=== PATIENT | female | born 2000 | race Caucasian/White ===

== ENCOUNTER 2024-04-19 20:39 | Emergency (ER) | payer BC, SELFPAY ==
[2024-04-19 21:07] VITALS: BP 147/78; PULSE 86; RESP 16; TEMP 36.8; O2SAT 100
[2024-04-19] MEDS: TETANUS,DIPHTHERIA,AC PERTUSSIS ADULT (0.5 ML) BOOSTRIX IM (21:23)
--- NOTE | 2024-04-19 21:25 | ED.WOUNDLAC ---
HPI - Wound/Laceration General Chief Complaint: Wound/Laceration Stated Complaint: L thumb lac Time Seen by Provider: 04/19/24 21:17 Source: patient Mode of arrival: ambulatory Limitations: no limitations History of Present Illness HPI narrative: patient presents to the emergency department for laceration to the left thumb. She is not up-to-date on tetanus. Reports she accidentally cut her thumb with an apple cutter. Denies decreased range of motion or numbness. Related Data Allergies Allergy/AdvReac Type Severity Reaction Status Date / Time No Known Allergies Allergy Verified 04/19/24 21:12 Review of Systems Review of Systems: CONSTITUTIONAL: Denies fever SKIN: Reports laceration NEUROLOGIC: Denies numbness All systems reviewed & are unremarkable except as noted in HPI and below PMFSH Past Medical History Medical History (Updated 04/19/24 @ 21:28 by Roxana Ceballos PA-C) No active medical problems Social History Social History (Updated 04/19/24 @ 21:28 by Roxana Ceballos PA-C) Substance use: never Exam Narrative: GENERAL: Well-appearing, well-nourished, and in no acute distress. HEAD: Normocephalic, atraumatic. EYES: EOMI. EXTREMITIES: Normal range of motion. No edema. Left thumb with 1cm superficial laceration to the tip SKIN: Warm, dry, no rash. NEURO: No focal deficits. Alert and oriented x3. PSYCH: Normal mood and affect Course Course Emergency Course: patient educated on further wound care Vital Signs Vital signs: Vital Signs Temperature 98.2 F 04/19/24 21:07 Pulse Rate 86 04/19/24 21:07 Respiratory Rate 16 04/19/24 21:07 Blood Pressure 147/78 H 04/19/24 21:07 Pulse Oximetry 100 04/19/24 21:07 Oxygen Delivery Room Air 04/19/24 21:07 Temperature 98.2 F 04/19/24 21:07 Pulse Rate 86 04/19/24 21:07 Respiratory Rate 16 04/19/24 21:07 Blood Pressure 147/78 H 04/19/24 21:07 Pulse Oximetry 100 04/19/24 21:07 Oxygen Delivery Room Air 04/19/24 21:07 MDM - Wound/Laceration MDM Narrative Medical decision making narrative: patient presents to the emergency department after lacerating the tip of her finger with an apple cutter. The wound was fairly superficial. It was irrigated. It was covered with Steri-Strips and a bandage. She was updated on tetanus vaccination. She was instructed on further wound care. She is to follow up with primary provider. She was given warnings to return to the ER Differential Diagnosis Differential diagnosis: Likely laceration, abrasion and avulsion of skin Critical Care Time Critical Care Time Critical Care Time: No Discharge Plan Discharge Clinical Impression: Laceration Patient Disposition: Home, Self-Care Condition: Stable Instructions: Laceration (ED), Steristrips (ED) Additional Instructions: Return to the emergency department if you experience fever, redness or swelling of your wound, abnormal drainage from your wound, or any other symptoms that are concerning to you. You may take this bandage off tomorrow. You can let the water run over the wound in the shower. Keep the area clean with mild soap and water Follow-up with your primary care doctor for wound check Follow-up/Referrals: PHYSICIAN NOT ON STAFF,NONSTAFF [Primary Care Provider] -
== END 2024-04-19 21:45 | disposition home or self-care (01) ==
PROVIDERS: Emergency Provider Physician Assistant
DX: S61.012A Laceration without foreign body of left thumb without damage to nail, initial encounter (principal); W26.0XXA Contact with knife, initial encounter; Z23 Encounter for immunization
CPT/HCPCS: 90471; 90715; 99282

== ENCOUNTER 2024-11-24 12:59 | Emergency (ER) | payer SELFPAY ==
[2024-11-24 13:05] VITALS: BP 128/81; PULSE 96; RESP 18; TEMP 36.8; O2SAT 100
--- NOTE | 2024-11-24 13:32 | ED_ITS ---
HPI - General Adult General Chief complaint: Chest Pain Stated complaint: Chest/Left Arm Pain Source: patient Mode of arrival: ambulatory Limitations: no limitations History of Present Illness HPI narrative: Patient presents for evaluation of chest pain. She indicates she has had intermittent symptoms for the last two weeks. She experiences a dull pain in the left upper chest and a sharp stabbing pain in the left lower chest which occur at different times. Pain in the upper chest is rated 4/10 severity and in the lower chest 8/10. She indicates over the past 8 months she has had episodes where her heart rate accelerates as high as the 170's. This seems to occur when she is ambulating and she detects it with her Apple watch. During these episodes she can often tell that her heart rate is high. Last night she developed pain in left upper extremity with associated numbness extending into the digits of the left hand. No personal or family history of DVT or PE. She is on an estrogen base contraceptive. She does not smoke or vape. No recent surgeries. Denies any calf swelling. Related Data Home Medications ?Medication ?Instructions ?Recorded ?Confirmed ?Last Taken ?Type norethindrone 1 mg-ethinyl tablet 11/24/24 Unknown History estradiol 20 mcg (24)-iron 75 mg (4) tablet (Aurovela 24 Fe) Allergies Allergy/AdvReac Type Severity Reaction Status Date / Time No Known Allergies Allergy Verified 11/24/24 13:14 Review of Systems Review of Systems: CONSTITUTIONAL: Denies fever, chills, or sweats. EYES: Denies visual changes, redness, or discharge. ENT: Denies rhinorrhea, congestion, sore throat, or otalgia. CARDIOVASCULAR: Reports left sided chest pain with sensation of racing heart rate. Denies edema. RESPIRATORY: Denies cough or dyspnea. GASTROINTESTINAL: Denies abdominal pain, nausea, vomiting, or diarrhea. GENITOURINARY: Denies dysuria or hematuria. SKIN: Denies rash or itching. MUSCULOSKELETAL: Denies back pain, joint pain, or myalgia. NEUROLOGIC: Reports numbness in the left upper extremity. Denies headache, dizziness, or weakness. PSYCHIATRIC: Denies anxiety or depression. [facility] Past Medical History Medical History No active medical problems Surgical History Surgical History No pertinent past surgical history Family History Family History Mother Family history non-contributory Social History Social History Smoking status: Never smoker Substance use: never Living arrangements: with roommate(s) Occupation/Education: student Gender identity (if verbalized by the patient): Female Spiritual care concerns: No Exam Narrative: GENERAL: Well-appearing, well-nourished, and in no acute distress. HEAD: Normocephalic, atraumatic. EYES: PERRLA and EOMI. ENT: Nares clear, no rhinorrhea or epistaxis. Mucous membranes moist. Oropharynx without tonsillar hypertrophy exudate or other lesions. Bilateral TMs pearly ayon nonbulging NECK: Supple. No adenopathy or masses. No carotid bruits or JVD CHEST: Clear to auscultation. No respiratory distress. No wheezes rales or rhonchi HEART: Rate 130. regular rhythm. No murmur heard. Normal peripheral pulses. ABDOMEN: Soft, nontender, nondistended, normal active bowel sounds. EXTREMITIES: Normal range of motion. No edema. SKIN: Warm, dry, no rash. NEURO: No focal deficits. Alert and oriented x3. PSYCH: Normal mood and affect. Course Course Emergency Course: This is a 24-year-old female who presented for evaluation of chest pain and left upper extremity pain. I am initial evaluation she was tachycardic. She advised that her heart rate accelerates as high as 170 with ambulation. We walked a distance of approximately six feet together and her heart rate accelerated into the 150's. EKG was performed and showed sinus tachycardia with nonspecific T-wave changes. I recommended she be transferred to the hospital for further evaluation and treatment. [facility]. I contacted [facility] and spoke with physician assistant finance manager, Roxana Ceballos. She indicates that Dr Kiser will accept pt for transfer there. I recommended pt be transferred via EMS. She declined. She was concerned about cost and opted to be transferred via private vehicle despite medical recommendations. Level of Care: Express Care Visit Vital Signs Vital signs: Vital Signs Temperature 36.8 C 11/24/24 13:05 Pulse Rate 96 11/24/24 13:05 Respiratory Rate 18 11/24/24 13:05 Blood Pressure 128/81 11/24/24 13:05 Pulse Oximetry 100 11/24/24 13:05 Temperature 36.8 C 11/24/24 13:05 Pulse Rate 96 11/24/24 13:05 Respiratory Rate 18 11/24/24 13:05 Blood Pressure 128/81 11/24/24 13:05 Pulse Oximetry 100 11/24/24 13:05 Medical Decision Making Vital Signs Vital Signs: Vital Signs Temperature 36.8 C 11/24/24 13:05 Pulse Rate 96 11/24/24 13:05 Respiratory Rate 18 11/24/24 13:05 Blood Pressure 128/81 11/24/24 13:05 Pulse Oximetry 100 11/24/24 13:05 Temperature 36.8 C 11/24/24 13:05 Pulse Rate 96 11/24/24 13:05 Respiratory Rate 18 11/24/24 13:05 Blood Pressure 128/81 11/24/24 13:05 Pulse Oximetry 100 11/24/24 13:05 ECG Data EKG #1: ECG completion date: 11/24/24 ECG completion time: 13:26 Interpretation: sinus tachycardia, rate 131. Nonspecific ST and T-wave changes Discharge Plan Discharge Clinical Impression: Chest pain, Tachycardia Patient Disposition: Acute Care Hospital Condition: Stable Patient Language: Persian Prescriptions: No Action Aurovela 24 Fe 1 mg-20 mcg (24)/75 mg (4) tablet Follow-up/Referrals: PHYSICIAN,POINTER HELPER [Primary Care Provider] - Time of Disposition: 13:31
--- NOTE | 2024-11-24 13:49 | ECG_ITS ---
Test Date: 2024-11-24 13:26:14 Measurements Intervals [place] Rate: 131 P: 74 MO: 151 QRS: 84 QRSD: 75 T: 7 QT: 333 QTc: 493 Interpretive Statements SINUS TACHYCARDIA CONSIDER RIGHT VENTRICULAR CONDUCTION DELAY MINIMAL Q WAVES- INFERIOR LEADS NONSPECIFIC ST & T-WAVE ABNORMALITY- ANTEROLAT/INF LEADS BASELINE ARTIFACT- I, III, AVR, AVL, AVF ABNORMAL ECG No previous ECG available for comparison Electronically Signed On 11-24-2024 13:52:32 CDT by Jah Harris D.O.
== END 2024-11-24 14:02 | disposition short-term general hospital (02) ==
PROVIDERS: Emergency Provider Nurse Practitioner
DX: R07.9 Chest pain, unspecified (principal); R00.0 Tachycardia, unspecified
CPT/HCPCS: 93005; 93010; 99213; G0463

== ENCOUNTER 2024-11-24 14:27 | Emergency (ER) | payer BC, SELFPAY ==
--- NOTE | ~2024-11-24 | XR_ITS ---
XR chest 1V portable Ordering provider: Ralph Kiser MD History: 24 years Female with . CP, palpitations . Comparison: None. FINDINGS: MEDIASTINUM: The cardiac silhouette is not enlarged. LUNGS: No infiltrates, effusions or pneumothorax. OTHER: No free air under the diaphragm. IMPRESSION: No acute cardiopulmonary pathology. Reviewed, dictated and finalized at location A.
--- NOTE | 2024-11-24 14:29 | ECG_ITS ---
Test Date: 2024-11-24 14:37:26 Measurements Intervals [place] Rate: 103 P: 0 DC: 0 QRS: 81 QRSD: 76 T: 20 QT: 296 QTc: 388 Interpretive Statements SINUS TACHYCARDIA MINIMAL Q WAVES- INFERIOR LEADS NONSPECIFIC ST ABNORMALITY- ANTEROLAT/INF LEADS BORDERLINE ECG Compared to ECG 11/24/2024 13:26:14 HEART RATE HAS DECREASED Electronically Signed On 11-24-2024 14:43:30 CDT by Jah Harris D.O.
[2024-11-24 14:35] VITALS: BP 137/96; PULSE 142; RESP 26; TEMP 36.6; O2SAT 100
[2024-11-24 14:44] VITALS: PULSE 130
[2024-11-24 14:53] LABS: Basophils Percent Auto 0.4 % (0.2-1.2); Eosinophils Absolute Auto 0.1 K/mm3 (0-0.3); Eosinophils Percent Auto 1.5 % (0-4.4); Hematocrit 41.9 % (37.0-47.0); Immature Granulocyte Absolute 0.03 K/mm3 (0.00-0.031); Immature Granulocyte Percent A 0.3 % (0-0.5); Lymphocytes Absolute Auto 2.07 K/mm3 (0.9-3.2); Lymphocytes Percent Auto 23.1 % (18.3-44.2); Mean Corpuscular HGB Conc 33.4 g/dl (32-36); Mean Corpuscular Hemoglobin 31.5 pg (26-34); Mean Corpuscular Volume 94.4 fl (80-100); Mean Platelet Volume 9.9 fl (7.4-10.4); Monocytes Absolute Auto 0.7 K/mm3 (0.1-0.6); Monocytes Percent Auto 7.5 % (2.6-8.5); Neutrophils Percent Auto 67.2 % (45.5-73.1); Platelet Count Result 322 k/mm3 (150-375); Red Blood Count 4.44 M/mm3 (4.2-5.4); Red Cell Distribution Width 12.6 % (11.5-14.5)
[2024-11-24 15:07] LABS: Prothrombin Time 13.2 Seconds (11.1-14.7)
[2024-11-24 15:08] LABS: Partial Thromboplastin Time 22.1 Seconds (22.3-36.8)
[2024-11-24 15:26] LABS: Alanine Aminotransferase 20 U/L (6-35); Alkaline Phosphatase 57 U/L (38-126); Anion Gap 12 mmol/L (4-12); Aspartate Amino Transferase 24 U/L (14-36); Bilirubin,Total 0.8 mg/dL (0.2-1.3); Blood Urea Nitrogen 10 mg/dL (7-17); Calcium 9.9 mg/dL (8.4-10.2); Carbon Dioxide 21 mmol/L (22-30); Chloride 106 mmol/L (98-107); Estimated CRCL calculation 91 ml/min; Estimated Glomerular Filt Rate > 60; Glucose 99 mg/dL (65-110); Lipase 153 U/L (23-300); Potassium 3.8 mmol/L (3.4-5.0); Sodium 139 mmol/L (137-145)
[2024-11-24] MEDS: SODIUM CHLORIDE 0.9% IV 2,000 ML 999 ML IV CONT (15:28)
[2024-11-24] MEDS: diazePAM INJ (*CRX) 10 MG/2 ML SYRINGE 5 MG IV PUSH (15:29)
[2024-11-24 15:31] LABS: D Dimer 0.39 ug/mL (<0.48)
[2024-11-24 15:33] VITALS: BP 116/81; PULSE 103; RESP 18; O2SAT 99
[2024-11-24 15:37] LABS: Troponin I < 0.012 ng/mL (0.000-0.034)
--- NOTE | 2024-11-24 16:07 | ED_ITS ---
HPI - General Adult General Chief complaint: Chest Pain Stated complaint: CP, palpitations Time Seen by Provider: 11/24/24 14:34 History of Present Illness HPI narrative: This is a 24-year-old female presenting with chief complaint of chest pain and palpitations. She was sent from a urgent care for further workup due to tachycardia and chest pain. The patient says that for the last 2 weeks she has been having intermittent pain on the left side of her chest. It is sharp, comes for a few seconds at a time and happens numerous times throughout the day. Occurs worse at night when she is trying to go to bed. Patient is tachycardic in the 130s. Patient has been tracking her heart rate with a apple watch since 2018 and she is frequently tachycardic in the 120s or 30s. She denies any fevers chills productive cough, shortness of breath abdominal pain urinary symptoms lower extremity edema or risk factors for DVT/PE. She is on estrogen control. Related Data Home Medications ?Medication ?Instructions ?Recorded ?Confirmed ?Last Taken ?Type norethindrone 1 mg-ethinyl tablet 11/24/24 Unknown History estradiol 20 mcg (24)-iron 75 mg (4) tablet (Aurovela 24 Fe) Allergies Allergy/AdvReac Type Severity Reaction Status Date / Time No Known Allergies Allergy Verified 11/24/24 13:14 [facility] Past Medical History Medical History No active medical problems Surgical History Surgical History No pertinent past surgical history Family History Family History Mother Family history non-contributory Social History Social History Smoking status: Never smoker Substance use: never Living arrangements: with roommate(s) Occupation/Education: student Gender identity (if verbalized by the patient): Female Spiritual care concerns: No Exam 2 Narrative: APPEARANCE: No apparent distress. Head: atraumatic. EYES: EOMI, NOSE: Atraumatic NECK: Trachea midline RESPIRATORY: No increased rate of breathing clear to auscultation CARDIOVASCULAR: Tachycardic, no peripheral edema, calves are equal in diameter ABDOMINAL: Non-distended soft nontender MUSCULOSKELETAl: No obvious deformities NEURO: Alert. Moving 4/4 extremities SKIN:: Warm, dry. Normal color PSYCHIATRIC: Normal affect Course Vital Signs Vital signs: Vital Signs Temperature 97.8 F 11/24/24 14:35 Pulse Rate 142 H 11/24/24 14:35 Respiratory Rate 26 H 11/24/24 14:35 Blood Pressure 137/96 H 11/24/24 14:35 Pulse Oximetry 100 11/24/24 14:35 Oxygen Delivery Room Air 11/24/24 14:35 Temperature 97.8 F 11/24/24 14:35 Pulse Rate 103 H 11/24/24 15:33 Respiratory Rate 18 11/24/24 15:33 Blood Pressure 116/81 11/24/24 15:33 Pulse Oximetry 99 11/24/24 15:33 Oxygen Delivery Room Air 11/24/24 14:35 Medical Decision Making MDM Narrative Medical decision making narrative: -Course: 24-year-old female spent for intermittent chest pain for 2 weeks. Troponin, D-dimer and chest x-ray were unremarkable. Low risk per Wells criteria w/ a negative dimer. EKG showed sinus tachycardia without ischemic changes. Patient has been tachycardic for over 7 years and this is a chronic condition. Patient received 2 L of fluids. On re-evaluation she is resting comfortably in bed. She no longer has chest pain. Her heart rate at rest on the quality assurance monitor is in the 90s, however when you go to speak to her quickly elevates to the 130s. I discussed results with patient she is comfortable going home. I did recommend referral to a sap portal consultant and she says she has 1 at home that she would like to see. Patient will be discharged with return precautions. -DDX includes but is not limited to: POTS, anxiety, pleurisy, ACS, PE, pneumonia, PTX -Independent interpretation of studies: Labs and imaging reviewed Independent EKG interpretation: Rhythm [sinus], Rate [103], [place] -[normal], [place] -[normal], QRS [narrow], QTC [normal], T waves -[negative for concerning inversions], ST Segments - [Negative for concerning elevations] Final interpretations: Sinus tachycardia Wells' Criteria for Pulmonary Embolism from [employer] on 11/24/2024 All calculations should be rechecked by clinician prior to use RESULT SUMMARY: 1.5 points Low risk group: 1.3% chance of PE in an ED population. Another study assigned scores <=4 as ?PE Unlikely? and had a 3% incidence of PE. INPUTS: Clinical signs and symptoms of DVT ?> 0 = No PE is #1 diagnosis OR equally likely ?> 0 = No Heart rate > 100 ?> 1.5 = Yes Immobilization at least 3 days OR surgery in the previous 4 weeks ?> 0 = No Previous, objectively diagnosed PE or DVT ?> 0 = No Hemoptysis ?> 0 = No Malignancy w/ treatment within 6 months or palliative ?> 0 = No Vital Signs Vital Signs: Vital Signs Temperature 97.8 F 11/24/24 14:35 Pulse Rate 142 H 11/24/24 14:35 Respiratory Rate 26 H 11/24/24 14:35 Blood Pressure 137/96 H 11/24/24 14:35 Pulse Oximetry 100 11/24/24 14:35 Oxygen Delivery Room Air 11/24/24 14:35 Temperature 97.8 F 11/24/24 14:35 Pulse Rate 103 H 11/24/24 15:33 Respiratory Rate 18 11/24/24 15:33 Blood Pressure 116/81 11/24/24 15:33 Pulse Oximetry 99 11/24/24 15:33 Oxygen Delivery Room Air 11/24/24 14:35 Lab Data 11/24/24 14:41 11/24/24 15:08 Labs: Lab Results 11/24/24 11/24/24 Range/Units 14:41 15:08 WBC 9.0 (4.5-10.0) K/mm3 RBC 4.44 (4.2-5.4) M/mm3 Hgb 14.0 (12.0-15.0) g/dL Hct 41.9 (37.0-47.0) % MCV 94.4 (80-100) fl MCH 31.5 (26-34) pg MCHC 33.4 (32-36) g/dl RDW 12.6 (11.5-14.5) % Plt Count 322 (150-375) k/mm3 MPV 9.9 (7.4-10.4) fl Immature Gran % (Auto) 0.3 (0-0.5) % Neut % (Auto) 67.2 (45.5-73.1) % Lymph % (Auto) 23.1 (18.3-44.2) % [place] % (Auto) 7.5 (2.6-8.5) % Eos % (Auto) 1.5 (0-4.4) % Baso % (Auto) 0.4 (0.2-1.2) % Lymph # (Auto) 2.07 (0.9-3.2) K/mm3 [place] # (Auto) 0.7 H (0.1-0.6) K/mm3 Eos # (Auto) 0.1 (0-0.3) K/mm3 Baso # (Auto) 0.0 (0.0-0.1) K/mm3 Abs Immat Gran (auto) 0.03 (0.00-0.031) K/mm3 Absolute Neuts (auto) 6.0 (1.3-6.7) K/mm3 Absolute Nucleated RBC 0.000 (0.0-0.012) K/mm3 Nucleated RBC % 0.0 (0.0-0.2) % PT 13.2 (11.1-14.7) Seconds INR 1.0 APTT 22.1 L (22.3-36.8) Seconds D-Dimer 0.39 (<0.48) ug/mL Sodium 139 (137-145) mmol/L Potassium 3.8 (3.4-5.0) mmol/L Chloride 106 (98-107) mmol/L Carbon Dioxide 21 L (22-30) mmol/L Anion Gap 12 (4-12) mmol/L BUN 10 (7-17) mg/dL Creatinine 0.69 L (0.7-1.0) mg/dL Estim Creat Clear Calc 91 ml/min Estimated GFR > 60 (59 - ) Glucose 99 (65-110) mg/dL Calcium 9.9 (8.4-10.2) mg/dL Total Bilirubin 0.8 (0.2-1.3) mg/dL AST 24 (14-36) U/L ALT 20 (6-35) U/L Alkaline Phosphatase 57 (38-126) U/L Troponin I < 0.012 (0.000-0.034) ng/mL Total Protein 8.0 (6.3-8.2) g/dL Albumin 5.0 (3.5-5.1) g/dL Lipase 153 (23-300) U/L Discharge Plan Discharge Clinical Impression: Tachycardia, Atypical chest pain Patient Disposition: Home Condition: Stable Instructions: Antibiotic Form, Chest Pain (ED) Additional Instructions: You were seen in the emergency department for chest pain. Your workup here was reassuring. Please use Motrin and Tylenol as needed. Please follow-up with your primary care physician sap portal consultant back home. If you develop any new or worsening symptoms or you to return to the closest emergency department. Patient Language: Mongolian Prescriptions: No Action Aurovela 24 Fe 1 mg-20 mcg (24)/75 mg (4) tablet Follow-up/Referrals: UNKNOWN,DOCTOR [Primary Care Provider] -
[2024-11-24 16:26] VITALS: BP 115/64; PULSE 91; RESP 18; O2SAT 100
--- OUTSIDE RECORDS SUMMARY | 2024-11-24 16:40 | XMS_ITS | Continuity of Care Document ---
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 Artist Name Role Phone Jake Tan MD Unavailable Unavailable Allergies, Adverse Reactions, Alerts Substance Reaction Status Criticality No Known Drug Allergies Active No I nformation Procedures Procedure Date REFRACTION EYE EXAM, NEW PATIENT Advance Directives Directive Yes / No Effective Date File Name No Information Encounters Encounter Description Practice Location Reason(s) For Visit Diagnoses Date Provider Providers Copied on Encounter [facility], [facility], [address] [place] [address], [id number], [place] tel:[phone] [facility] no problems with vision and no complaints (chief complaint)no problems with vision and no complaints (chief complaint) Hypermetrop ia, right eyeMyopia, left eye Dominick Joseph. [address] [place] [address], [id number], [place]. tel:[phone] Family History Family Member Type Diagnosis Age At Onset Problem (finding) No family hist ory of Macular degeneration Mother Problem (finding) hypertension Mother Problem (finding) cataract Grandmother Problem (finding) Diabetes mellitus Problem (finding) No family history of Gl [place] Payers Payer name Insurance type Covered green party ID Authoriza tion(s) [facility] CI [id number] Social History Type Description Quantity Date Captured Comments Alcohol Use Details Unknown Caffeine Use Details Unknown Tobacco Use Status Never smoked tobacco 2017 Smoking Status Never smoker Non-Smoking Tobacco Use Details : No Details Available : No Details Available Sex Female Chief Complaint And Reason For Visit From encounter dated '01/25/2018 10:15'. no problems with vision and no complaints (chief complaint). Description: The 17 Year 11 Months oldfemale presents for evaluation of no problems with vision and no complaints in the right eye and left eye, since last exam2 yrs ago. Vision good, stable and constant [employer]. Pt states she has reading gls but never uses them. Pt states occasional headache when on her phone. The patient denies pain or discomfort. No eye meds or OTC AT. no problems with vision and no complaints (chief complaint) Reason For Referral Reason For Referral No Information History Of Present Illness Encounter Date Complaint History Of Prese nt Illness no problems with vis ion and no complaints The 17 Year 11 Months old female presents for evaluation of no problems with vision and no complaints in the right eye and left eye, since last exam2 yrs ago. Vision good, stable and constant [employer]. Pt states she has reading gls but never uses them. Pt states occasional headache when on her phone. The patient denies pain or discomfort. No eye meds or OTC AT. Functional Status Date Functional Assessmen t No Information Instructions Date Instruction Additional Infor todd Impression/Plan - Ey es look healthy OU. No Glaucoma, Cataracts or Macular Degeneration. Vision is doing well. No glasses Rx needed at this time. Will recheck things in 2 yrs. Pt to call or come in sooner if any problems. Follow up - 2 yrs with [facility] RTD Assessments Type Assessment Date assessment Hypermetropia, right eye 2017 assessment Myopia, left eye Patient Care Teams Name Effective Dates (start - stop) Status Members No Information
--- OUTSIDE RECORDS SUMMARY | 2024-11-24 16:41 | XMS_ITS | Patient Health Record ---
Author Organization [facility] Address [address] [place], [place] [id number] Care Team Providers Care Employee Counselor Name Role Phone Osmar Salgadosay Primary Care Provider Unavailabl e SandraYany Unavailable [phone] King Crissy Unavailable [phone] ALLERGIES Allergen (clinical drug ingredient) Drug/Non Drug Allergy documented on EMR Reaction Allergy Type Onset Date Status No Known Drug Allergy Unknown Drug Allergy Active RESULTS Component Value Reference Range Notes THINPREP PAP WITH FORESTRY CREW CHIEF (NE W 09/05/20) Reviewed date:08/18/2024 12:08:08 PM Interpretation:Normal Performing Lab:[facility], [address] [place] [address], [place], [address] Notes/Report: REASON FOR REFERRAL No Information MEDICATIONS Medication SIG (Take, Route, Frequency, Duration) Notes Start Date End Date Status Blisovi 24 Fe 1-20 MG-MCG(24) take 1 tablet by mouth every day Oral Once a day for 84 days Active SOCIAL HISTORY Tobacco Use: Social History Observation Description Date Details (start date - stop date) Never Smoker NA - NA Sex Assigned At : Social History Observation Description Sex Assigned At Unknown TOBACCO USE - Question Answer Notes Are you a: never Tobacco user Alcohol Screen Question Answer Notes Did you have a drink containing alcohol in the p ast year? No Points 0 Interpretation Negative PROBLEMS Problem Type ICD Code Onset Dates Problem Status W/U Status Risk SNOMED Code Notes Problem Menorrhagia with regular cycle (N92.0) Active confirmed 369913416 Problem Dysmenorrhea (N94.6) Active confirmed 139639235 Problem Dyspareunia due to medical condition in female (N94.19) Active confirmed Pain in fema le genitalia on intercourse (26465376) Problem Deep dyspareunia in female (N94.12) Active confirmed Pain in female genitalia on intercourse (64865363) VITAL SIGNS Blood pressure diastolic 74 mm Hg 08/07/2024 Height 63 in 08/07/2024 Blood pressure systolic 124 mm Hg 08/07/2024 Weight 148 lbs 08/07/2024 BMI 26.21 kg/m2 08/07/2024 Encounters Encounter Location Date Provider Diagnosis [facility] [address] [place], [place] [id number] 04/10/2024 [facility] Dyspareunia due to medical condition in female N94.19 [facility] [address] [place], [place] [id number] 04/10/2024 [facility] [address] [place], [place] [id number] 08/07/2024 [facility] Encounter for routin e gynecological examination Z01.419 ; Cervical cancer screening Z12.4 and Deep dyspareunia in female N94.12 ASSESSMENTS Encounter Date Diagnosis Assessment Notes Treatment Notes Treatment Clinical Notes 04/10/2024 Dyspareunia due to medical condition in female (ICD-10 - N94.19) Patient presents to the clinic with painful intercourse. Reports a tearing and burning sensation. One exam small fissure noted. Instructed to use A&D ointment twice daily and avoid intercourse until healed. Also advised to use coconut oil at bedtime as a moisturizer to help keep tissue hydrated. Call if no improvement in symptoms. 08/07/2024 Encounter for routine gynecological examination (ICD-10 - Z01.419) 08/07/2024 Cervical cancer screening (ICD-10 - Z12.4) pap sent 08/07/2024 Deep dyspareunia in female (ICD-10 - N94.12) 08/07/2024 Other Patient present s to the clinic for annual exam. She is doing well and still reports pain with intercourse. Patient has not attempted intercourse in past few months. Gaurding noted on exam. Instructed to use dilator kit and use coconut oil nightly. Call if no improvement. She denies any significant change in her medical history. STI screening offered. Encouraged self breast exams and adequate diet and exercise. We will see her back in 1 year. Instructed to call with any questions or concerns. PLAN OF TREATMENT Next Appt Details Provider Name:Crissy Flores, 08/23/2025 01:20:00 PM, [address] [facility], [address], [place], [place], [id number], Insurance Providers Payer Name Payer Address Payer Phone Subscriber Number Group Number Insured Name Patient Relationship to Insured Coverage Start Date Coverage End Date [facility] [address] [place], [place] [id number] Oscar Stubbs Spouse - patient is the spouse of the insured MEDICAL (GENERAL) HISTORY Medical History History ICD Code Anxiety Vitamin D Def Surgical History Surgery Date(Month/Year) [facility] Hospitalization History Reason Date(Month/Year) Denies past hospitalizations
--- OUTSIDE RECORDS SUMMARY | 2024-11-24 16:41 | XMS_ITS ---
Author Organization [facility] Address [address] [place] [address] [address] [place], [place] [id number] Care Team Providers Care Heel Varnisher Name Role Phone SalgadoLaura javier Primary Care Provider Unavailabl e Sandra Yany Unavailable [phone] Crissy Flores Unavailable [phone] ALLERGIES Allergen (clinical drug ingredient) Drug/Non Drug Allergy documented on EMR Reaction Allergy Type Onset Date Status No Known Drug Allergy Unknown Drug Allergy Active RESULTS Component Value Reference Range Notes THINPREP PAP WITH DIRECTOR OF BROADCAST (NE W 09/05/20) Reviewed date:08/18/2024 12:08:08 PM Interpretation:Normal [facility]forming [facility], [address] [place] [address], [place], [address] Notes/Report: REASON FOR VISIT Annual MEDICATIONS Medication SIG (Take, Route, Frequency, Duration) [...] ast year? No Points 0 Interpretation Negative VITAL SIGNS Blood pressure systolic 124 mm Hg 08/07/19 25 Blood pressure diastolic 74 mm Hg 025 Height 63 in 08/07/2024 Weight 148 lbs 08/07/2024 BMI 26.21 kg/m2 08/07/2024 Encounters Encounter Location Date Provider Diagnosis [facility] [address] [facility] [address] [place], [place] [id number] 08/07/2024 Crissy Flores Encounter for routin e gynecological examination Z01.419 ; Cervical cancer screening Z12.4 and Deep dyspareunia in female N94.12 ASSESSMENTS Encounter Date Diagnosis Assessment Notes Treatment Notes Treatment Clinical Notes 08/07/2024 Encounter for routine gynecological examination (ICD-10 [...] any questions or concerns. PLAN OF TREATMENT Medication Medication Name Sig Start Date Stop Date Notes Blisovi 24 Fe 1-20 MG-MCG(24) take 1 tab let by mouth every day Oral Once a day for 84 days Treatment Notes Assessment Notes Other Patient presents to the clinic for annual exam. She [...] to call with any questions or concerns. Next Appt Details Follow Up: 1 Year, Reason: Provider Name:Crissy Flores, 08/23/2025 01:20:00 PM, [address] [facility], [address], [place], [place], [id number], Progress Notes * Examination Category Sub-Category Detail Notes General Examination HEENT: unremarkable Neck/Thyroid: no lymphadenopathy, supple, thyroid normal Extremities: no edema General Appearance: well nourished, aler t and oriented, pleasant, female Skin: unremarkable Neurologic Exam: alert and oriented x 3 Oral Cavity: no significant abnor mality Breasts: without dominant mas ses, fixed masses, nipple discharge, skin changes Genitourinary: adnexa - no masses o r tenderness, cervix - no discharge or lesions or CMT, normal external genitalia, uterus; non-tender and normal size on palpation, vagina; pink moist mucosa, no lesions or abnormal discharge Rectal: normal Heart: heart sounds are nor mal, rhythm is regular, no murmur Lungs: clear to auscultatio n, bilaterally, no wheezes, rhonchi, rales Abdomen: soft, non-tender, no organomegaly, bowel sounds are normal History and Physical Notes * HPI (History of Present Illness) Category Sub-Category Detail Notes 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
--- OUTSIDE RECORDS SUMMARY | 2024-11-24 16:41 | XMS_ITS ---
Author Organization [facility] Address [address] [facility] [address] [place], [place] [id number] Care Team Providers Care Language Asst Name Role Phone Laura Salgado Primary Care Provider Unavailabl e Yany Flores Unavailable [phone] Crissy Flores Unavailable [phone] REASON FOR VISIT painful intercourse Encounters Encounter Location Date Provider Diagnosis [facility] [address] [facility] [address] [place], [place] [id number] 04/10/2024 Crissy Flores PLAN OF TREATMENT Next Appt Details Provider Name:Crissy Flores, 08/23/2025 01:20:00 PM, [address] [facility] [address], [place], [place], [phone],
--- OUTSIDE RECORDS SUMMARY | 2024-11-24 16:41 | XMS_ITS ---
Author Organization [facility] Address [address] [facility] [address] [place], [place] [id number] Care Team Providers Care Material Stockkeeper Yard Name Role Phone Salgado, Laura Primary Care Provider Unavailabl e Sandra Yany Unavailable [phone] Crissy Flores Unavailable [phone] ALLERGIES No Known Allergies REASON FOR VISIT painful intercourse MEDICATIONS Medication SIG (Take, Route, Frequency, Duration) Notes Start Date End Date Status Blisovi 24 Fe 1-20 MG-MCG(24) TAKE 1 TABLET BY MOUTH EVERY DAY Oral for 84 Active SOCIAL HISTORY Tobacco Use: Social History [...] W/U Status Risk SNOMED Code Notes Problem Deep dyspareunia in female (N94.12) Active confirmed Pain in female genitalia on intercourse ([address]) Problem Dyspareunia due to medical condition in female (N94.19) Active confirmed Pain in fema le genitalia on intercourse (35169265) VITAL SIGNS Blood pressure systolic 118 mm Hg 04/10/20 24 Blood pressure diastolic 76 mm Hg 024 Height 63 in 04/10/2024 Weight 148 lbs 04/10/2024 BMI 26.21 kg/m2 04/10/2024 Encounters Encounter Location Date Provider Diagnosis [facility] [address] [facility] [address] [place], [place] [id number] 04/10/2024 Crissy Flores Dyspareunia due to medical condition in female N94.19 ASSESSMENTS Encounter Date Diagnosis Assessment Notes Treatment [...] hydrated. Call if no improvement in symptoms. PLAN OF TREATMENT Treatment Notes Assessment Notes Dyspareunia due to medical c ondition in female Patient presents to the clinic with painful intercourse. Reports a tearing and burning sensation. One exam small fissure noted. Instructed to use A&D ointment twice daily and avoid intercourse until healed. Also advised to use coconut oil at bedtime as a moisturizer to help keep tissue hydrated. Call if no improvement in symptoms. 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
--- OUTSIDE RECORDS SUMMARY | 2024-11-24 17:16 | XMS_ITS | Continuity of Care Document ---
Author Organization [facility] Address [address] [place] [phone] Phone Care Team Providers Care Associate Attorney Name Role Phone Jake Tan MD Unavailable Unavailable Allergies, Adverse Reactions, Alerts Substance Reaction Status Criticality No Known Drug Allergies Active No I nformation Procedures Procedure Date REFRACTION EYE EXAM, NEW PATIENT Advance Directives Directive Yes / No Effective Date File Name No Information Encounters Encounter Description Practice Location Reason(s) For Visit Diagnoses Date Provider Providers Copied on Encounter [facility], [facility], [address] [place] [address], [id number], [place] tel:[phone] [facility] Eye [facility] no problems with vision and no complaints (chief complaint)no problems with vision and no complaints (chief complaint) Hypermetrop ia, right eyeMyopia, left eye Dominick Joseph. [address] [place] [address], [id number], [place]. tel:[phone] Family History Family Member Type Diagnosis Age At Onset Problem (finding) No family history of Gl [place] Grandmother Problem (finding) Diabetes mellitus Mother Problem (finding) cataract Mother Problem (finding) hypertension Problem (finding) No family hist ory of Macular degeneration Payers Payer name Insurance type Covered republican ID Authoriza tion(s) [facility] CI [id number] Social History Type Description Quantity Date Captured [...] up - 2 yrs with [facility] RTD Assessments Type Assessment Date assessment Hypermetropia, right eye 2017 assessment Myopia, left eye Patient Care Teams Name Effective Dates (start - stop) Status Members No Information
== END 2024-11-24 16:28 | disposition home or self-care (01) ==
PROVIDERS: Emergency Provider Emergency Medicine
DX: R00.0 Tachycardia, unspecified (principal); R07.89 Other chest pain
CPT/HCPCS: 36415; 71045; 80053; 83690; 84484; 85025; 85380; 85610; 85730; 93005; 96361; 96374; 99284; J3360; J7030